=== PATIENT | female | born 1985 | race Caucasian/White ===

== ENCOUNTER 2022-04-08 15:08 | Observation (INO) ==
[2022-04-08] MEDS ORDERED: ZOFRAN INJ 4 MG VIAL IVP ONE (15:31)
--- NOTE | 2022-04-08 15:31 | DR.GENAD ---
HPI Time Seen Time Seen by Provider: 04/08/22 15:31 PCP Primary Care Physician: maye HPI Comment HPI Comment: PATIENT IS 36YR OLD FEMALE IN ER WITH RLQ ABDOMINAL PAIN THAT STARTED YESTERDAY AND IS WORSE TODAY. NO FEVER OR DYSURIA. HAVING NAUSEA AND V OMITING. NO DIARRHEA. SAW PCP TODAY AND WAS GIVEN TORADOL IM AT THE DOCTORS OFFICE. PATIENT MEDICATION DID NOT HELP. Complaint/Symptoms Chief Complaint Doctors Comments: RIGHT LOWER ABDOMINAL PAIN SINCE YESTERDAY. Chief Complaint:: RIGHT LOWER QUADRANT PAIN - STARTED YESTERDAY MORNING. PT SAYS THE PAIN WAS DULL YESTERDAY BUT HAS GOTTEN WORSE SINCE. PT SAYS NOTHING MAKES IT BETTER AND MOVING MAKES IT WORSE. Self Treatment fo Chief Complaint: TORADOL SHOT AT DR JACKSON'S OFFICE Nurses notes reviewed Nurses Notes Review: Yes Source History Provided: Patient Mode of Arrival Mode of Arrival: Ambulatory Timing Onset of Chief Complaint: 04/07/22 PMH PMH Past Medical History: Yes Past Medical History: Anxiety and Headaches Past Surgical History: Yes Surgical History: Cholecystectomy and Hysterectomy Family History History of Family Medical Conditions: Yes Family Medical History: Diabetes Mellitus and [place] Social History Alcohol Use: None Do you use any recreational Drugs:: No Lives With: Spouse and Family Lives Where: Home Infectious screening Have you traveled outside the country in the last 6 months?: No Isolation: Standard ROS Review of Systems Constitutional: See HPI, Weakness and Fatigue; negative Fever Eyes: No Symptoms Reported and See HPI; negative Blurred Vision ENTM: No Symptoms Reported and See HPI; negative Nose Discharge or Nose Congestion Respiratoy: No Symptoms Reported and See HPI; negative Moist Cough, Short of Breath or Wheezing Cardiovascular: No Symptoms Reported and See HPI; negative Chest Pain Gastrointestinal/Abdominal: See HPI, Abdominal Pain, Nausea and Vomiting; negative Diarrhea Genitourinary: No Symptoms Reported and See HPI; negative Dysuria, Frequency or Hematuria Neurological: No Symptoms Reported, See HPI and Weakness; negative Headache or Dizziness Musculoskeletal: No Symptoms Reported and See HPI; negative Muscle Pain Integumentary: No Symptoms Reported and See HPI; negative Rash or Juandice Hematologic/Lymphatic: No Symptoms Reported and See HPI Endocrine: No Symptoms Reported and See HPI; negative Increased Thirst or Increased Urine Psychiatric: No Symptoms Reported and See HPI All Other Systems: Reviewed and Negative PE Vital Signs Vitals: Temperature 97.8 F Pulse Rate 65 Respiratory Rate 14 Blood Pressure [Left Arm] 137/86 Blood Pressure 121/64 O2 Sat by Pulse Oximetry 100 General Limitations: No Limitations General Appearance: Alert and In No Apparent Distress Head Head Exam: Normal Inspection and Atraumatic Eyes Eye exam: Normal Appearance; negative Scleral Icterus or Conjunctival Injection ENT ENT Exam: Normal Exam, Normal Oropharynx, Normal External Ear Exam and TM's Normal Bilaterally External Ear Exam: Normal External Inspection; negative Mastoid Tenderness TM/Canal Exam: Bilateral: Normal Throat Exam: Normal Inspection; negative Tonsillar Erythema, Tonsillomegaly or Tonsillar Exudate Neck Neck Exam: Normal Inspection and Trachea Midline; negative Tenderness Chest Chest Inspection: Normal Inspection and Symmetric Chest Wall Rise; negative Tenderness Respiratory Respiratory Exam: Normal Lung Sounds Bilat; negative Accessory Muscle Use, Chest Wall Tenderness or Respiratory Distress Respiratory Exam: Bilateral: Clear to Auscultation Cardiovascular Cardiovascular Exam: Regular Rate, Normal Rhythm and Normal Heart Sounds; negative Systolic Murmur or Diastolic Murmur Abdominal Exam Abdominal Exam: Normal Bowel Sounds, Soft and Tenderness Abdominal Tenderness: RLQ, Suprapubic and Moderate Extremities Extremities Exam: Normal Inspection and Normal Capillary Refill Back Back Exam: Normal Inspection; negative (R) CVA Tenderness or (L) CVA Tenderness Neurologic Neurological Exam: Alert and Oriented X3; negative Motor Sensory Deficit Psychiatric Psychiatric Exam: Normal Affect and Normal Mood Skin Skin Exam: Dry; negative Rash MDM Differential Diagnosis Differential Diagnosis: APPENDICITIS, KIDNEY STONE, UTI, DIVERTICULITIS. COURSE Treatment Treatment: SEE ORDERS DONE WHILE PATIENT IN ER. Education/Counseling Education/Counseling: Patient Educated On: Diagnosis ROR Labs Reviewed Laboratory Results Reviewed?: Yes Result Diagrams: 04/08/22 15:42 04/08/22 16:17 Laboratory: WBC 9.1 X10^3/uL (3.6-10.0) 04/08/22 15:42 RBC 5.22 X10^6/uL (3.5-5.4) 04/08/22 15:42 Hgb 15.7 g/dL (12.0-16.0) 04/08/22 15:42 Hct 45.0 % (36.0-47.0) 04/08/22 15:42 MCV 86.4 fL (80.0-100.0) 04/08/22 15:42 MCH 30.0 pg (27.0-34.0) 04/08/22 15:42 MCHC 34.8 g/dL (33.0-35.0) 04/08/22 15:42 RDW 14.0 % (11.6-16.5) 04/08/22 15:42 Plt Count 268 X10^3/uL (150.0-450.0) 04/08/22 15:42 MPV 8.0 fL (7.4-11.0) 04/08/22 15:42 Neut % (Auto) 62.8 % (42.0-75.0) 04/08/22 15:42 Lymph % (Auto) 30.6 % (21.0-51.0) 04/08/22 15:42 Karnes % (Auto) 4.3 % (0.0-13.0) 04/08/22 15:42 Eos % (Auto) 1.1 % (0.9-2.9) 04/08/22 15:42 Baso % (Auto) 1.2 % (0.2-1.0) H 04/08/22 15:42 Neut # (Auto) 5.7 x10^3/uL (2.2-4.8) H 04/08/22 15:42 Lymph # (Auto) 2.8 X10^3/uL (1.3-2.9) 04/08/22 15:42 [place] # (Auto) 0.4 x10^3/uL (0.3-0.8) 04/08/22 15:42 Eos # (Auto) 0.1 x10^3/uL (0.0-0.2) 04/08/22 15:42 Baso # (Auto) 0.1 X10^3/uL (0.0-0.1) 04/08/22 15:42 Absolute Nucleated RBC 0.0 /100WBC 04/08/22 15:42 Sample Site Rrad 04/08/22 16:29 ABG pH 7.340 (7.35-7.45) L 04/08/22 16:29 ABG pCO2 52.0 mmHg (35.0-45.0) H* 04/08/22 16:29 ABG pO2 311.0 mmHg (80.0-100.0) H 04/08/22 16:29 ABG HCO3 28.1 mmol/L (22-26) H 04/08/22 16:29 ABG O2 Saturation 100.0 % (90-100) 04/08/22 16:29 ABG Base Excess 1.5 mmol/L (-2.0-2.0) 04/08/22 16:29 Abran Test Pos 04/08/22 16:29 A-a Gradient 337.0 mmHg 04/08/22 16:29 FiO2 100.0 04/08/22 16:29 Blood Gas Comments Pt jagjit well elj cdn 04/08/22 16:29 Sodium 140 mmol/L (136-145) 04/08/22 16:17 Corrected Sodium TNP 04/08/22 16:17 Potassium 3.3 mmol/L (3.5-5.1) L 04/08/22 16:17 Chloride 105 mmol/L (98-107) 04/08/22 16:17 Carbon Dioxide 32.1 mmol/L (21-32) H 04/08/22 16:17 BUN 9 mg/dL (7-18) 04/08/22 16:17 Creatinine 1.06 mg/dL (0.55-1.02) H 04/08/22 16:17 Est GFR (MDRD) Af Amer > 60 (>60) 04/08/22 16:17 Est GFR (MDRD) Non-Af > 60 (>60) 04/08/22 16:17 Glucose 93 mg/dL (65-99) 04/08/22 16:17 POC Glucose (mg/dL) 80 mg/dL (65-99) 04/08/22 16:34 Calcium 8.6 mg/dL (8.5-10.1) 04/08/22 16:17 Corrected Calcium TNP 04/08/22 16:17 Total Bilirubin 0.40 mg/dL (0.2-1.0) 04/08/22 16:17 AST 17 Units/L (15-37) 04/08/22 16:17 ALT 18 Units/L (12-78) 04/08/22 16:17 Alkaline Phosphatase 76 Units/L (46-116) 04/08/22 16:17 Total Protein 6.8 g/dL (6.4-8.2) 04/08/22 16:17 Albumin 3.8 g/dL (3.4-5.0) 04/08/22 16:17 Globulin 3.0 g/dL (2.5-4.5) 04/08/22 16:17 Albumin/Globulin Ratio 1.3 Ratio (1.1-2.1) 04/08/22 16:17 Amylase 73 Units/L (25-115) 04/08/22 16:17 Lipase 127 Units/L (73-393) 04/08/22 16:17 Specimen Type Clean catch urine 04/08/22 16:33 Urine Color Straw (YELLOW) 04/08/22 16:33 Urine Appearance Clear (CLEAR) 04/08/22 16:33 Urine pH 6.0 (5.0 - 8.0) 04/08/22 16:33 Ur Specific [place] 1.010 (1.000-1.030) 04/08/22 16:33 Urine Protein Negative (NEGATIVE) 04/08/22 16:33 Urine Glucose (UA) Negative (NEGATIVE) 04/08/22 16:33 Urine Ketones Negative (NEGATIVE) 04/08/22 16:33 Urine Blood Negative (NEGATIVE) 04/08/22 16:33 Urine Nitrite Negative (NEGATIVE) 04/08/22 16:33 Urine Bilirubin Negative (NEGATIVE) 04/08/22 16:33 Urine Urobilinogen Normal (NORMAL) 04/08/22 16:33 Ur Leukocyte Esterase Negative (NEGATIVE) 04/08/22 16:33 SARS CoV-2 RNA Rapid NICOLAS Negative (NEGATIVE) 04/08/22 16:45 XRAY XRAY Interpreted by: Radiologist (REPORTS NOTED.) EKG Rate: 71 [place]: Normal Rhythm: NSR Block: None Hypertrophy: None ST: Normal Opioid Opioid Risk Tool Age (Hank box if 16-45): Yes History of Preadolescent Sexual Abuse: No Total: 1 Total Score Risk Category: Low Risk Copyright: Anish CORNEJO predicting aberrant behaviors Discharge Plan Discharge Plan Patient Disposition: HOME, SELF-CARE Condition: Stable Prescriptions: No Action nortriptyline [Pamelor] 25 MG capsule 2 cap PO HS estradiol [Estrace] 2 MG tablet 1 tab PO DAILY gabapentin 100 MG capsule 1 cap PO HS propranolol 10 MG tablet 10 mg PO BID Qty: 60 0RF gabapentin 100 MG capsule 100 mg PO BID Qty: 60 0RF lorazepam 0.5 MG tablet 0.5 mg PO HS Qty: 20 0RF Rx Instructions: Take one tablet at bedtime as needed cyclobenzaprine 10 mg tablet 10 mg PO TID PRN (Reason: muscle spasm) Qty: 12 0RF ibuprofen 800 mg tablet 800 mg PO Q6H PRN (Reason: pain/inflammation) Qty: 20 0RF hydrocodone-acetaminophen 5-325 mg tablet 1 tab PO Q4-6H MDD 6 PRN (Reason: for more severe pain) Qty: 12 0RF Health Concerns: Post Hospitalization: new medications and changes needed to prevent readmission or further decline. Pt educated and given instructions on all concerns. Plan of Treatment: Continue with present treatment and follow up plan. Pt is to keep follow up appointment as instructed and take medications as ordered. Orders to Discharge Patient Discharge Orders: Transfer (Routine); Ordered 04/08/22 Ordered By: STEPHANE CHAO Follow ups/Referrals Follow ups/Referrals: Ahsan Jackson [Primary Care Provider] - 3 days Instructions Stand Alone Forms: Precautions for COVID19, [facility], Patient Portal, Social Distancing
[2022-04-08] MEDS ORDERED: NS 1,000 ML IV 1,000 ML ONE ×2 (15:36→20:05)
[2022-04-08] MEDS: NS 1,000 ML IV 1,000 ML IV SCH ×2 (15:47→23:12)
[2022-04-08] MEDS ORDERED: PHENERGAN INJ 25 MG IM ONE ×2 (15:49→15:56)
[2022-04-08 15:52] LABS: BILIRUBIN,URINE NEGATIVE (NEGATIVE); BLOOD/HEMOGLOBIN,URINE NEGATIVE (NEGATIVE); GLUCOSE, URINE NEGATIVE (NEGATIVE); KETONES,URINE NEGATIVE (NEGATIVE); LEUKOCYTE ESTERASE ,URINE NEGATIVE (NEGATIVE); NITRITES,URINE NEGATIVE (NEGATIVE); PROTEIN,URINE NEGATIVE (NEGATIVE); UROBILINOGEN,URINE NORMAL (NORMAL)
[2022-04-08 15:53] LABS: EOSINOPHILS # (AUTO) 0.1 x10^3/uL (0.0-0.2); HEMOGLOBIN 15.7 g/dL (12.0-16.0); RED BLOOD COUNT 5.22 X10^6/uL (3.5-5.4); WHITE BLOOD COUNT 9.1 X10^3/uL (3.6-10.0)
[2022-04-08 15:56] LABS: BASOPHILS # (AUTO) 0.1 X10^3/uL (0.0-0.1); BASOPHILS % (AUTO) 1.2 % (0.2-1.0); EOSINOPHILS % (AUTO) 1.1 % (0.9-2.9); LYMPHOCYTES # (AUTO) 2.8 X10^3/uL (1.3-2.9); LYMPHOCYTES % (AUTO) 30.6 % (21.0-51.0); MEAN CORPUSCULAR HGB CONC 34.8 g/dL (33.0-35.0); MEAN CORPUSCULAR VOLUME 86.4 fL (80.0-100.0); MONOCYTES # (AUTO) 0.4 x10^3/uL (0.3-0.8); MONOCYTES % (AUTO) 4.3 % (0.0-13.0); NEUTROPHILS # (AUTO) 5.7 x10^3/uL (2.2-4.8); NEUTROPHILS % (AUTO) 62.8 % (42.0-75.0)
[2022-04-08 15:59] LABS: APPEARANCE,URINE SLIGHTLY HAZY (CLEAR); COLOR,URINE YELLOW (YELLOW)
[2022-04-08] MEDS ORDERED: [UNRECOGNIZED DRUG - OTHER] ONE (16:19)
--- NOTE | 2022-04-08 16:24 | CT ---
HISTORYRLQ ABD PAINSTUDYABDOMEN/PELVIS W/O CONCOMPARISONTECHNIQUEMultiple axial images of the abdomen and pelvis were obtained from the lung bases to the pubic symphysis without the administration of IV contrast. Dose reduction techniques including Automated Exposure Control (AEC) and adjustment of mA and kV were utilized.FINDINGSThe lung bases are clear without effusion. The heart size is normal. The liver is normal. Gallbladder has been removed. The pancreas, spleen, adrenal glands are normal. Kidneys are normal in size without stone or hydronephrosis. The stomach, small bowel large bowel are normal. Uterus has been removed. Urinary bladder has been collapsed. No worrisome bone marrow lesionIMPRESSIONUnremarkable CT of the abdomen and pelvis. Negative for appendicitis.Electronically signed by: Geoffrey Stroud (Apr 08, 2022 16:23:32)
[2022-04-08 16:35] LABS: ABG BASE EXCESS 1.5 mmol/L (-2.0-2.0); ABG HCO3 28.1 mmol/L (22-26)
[2022-04-08] MEDS ORDERED: D50W ABBOJECT SYR ONE (16:35)
[2022-04-08 16:36] LABS: ALANINE AMINOTRANSFERASE 18 Units/L (12-78); ALBUMIN 3.8 g/dL (3.4-5.0); ALKALINE PHOSPHATASE 76 Units/L (46-116); AMYLASE 73 Units/L (25-115); ASPARTATE AMINO TRANSFERASE 17 Units/L (15-37); BLOOD UREA NITROGEN 9 mg/dL (7-18); CALCIUM 8.6 mg/dL (8.5-10.1); CARBON DIOXIDE 32.1 mmol/L (21-32); CHLORIDE 105 mmol/L (98-107); CREATININE 1.06 mg/dL (0.55-1.02); LIPASE 127 Units/L (73-393); SODIUM 140 mmol/L (136-145); TOTAL PROTEIN 6.8 g/dL (6.4-8.2); eGFR NON BLACK RACES > 60 (>60)
[2022-04-08 16:36] LABS: ABG ALLEN TEST POS
[2022-04-08] MEDS ORDERED: D50W ABBOJECT SYR IV ONE (16:36)
[2022-04-08] MEDS ORDERED: [UNRECOGNIZED DRUG - OTHER] IN ONE (16:37)
[2022-04-08 16:47] LABS: BILIRUBIN,URINE NEGATIVE (NEGATIVE); BLOOD/HEMOGLOBIN,URINE NEGATIVE (NEGATIVE); GLUCOSE, URINE NEGATIVE (NEGATIVE); KETONES,URINE NEGATIVE (NEGATIVE); LEUKOCYTE ESTERASE ,URINE NEGATIVE (NEGATIVE); NITRITES,URINE NEGATIVE (NEGATIVE); PROTEIN,URINE NEGATIVE (NEGATIVE); UROBILINOGEN,URINE NORMAL (NORMAL)
[2022-04-08 16:49] LABS: APPEARANCE,URINE CLEAR (CLEAR); COLOR,URINE STRAW (YELLOW)
[2022-04-08] MEDS ORDERED: COGENTIN 2 MG ONE (17:12)
[2022-04-08] MEDS ORDERED: COGENTIN 2 MG IVP ONE (17:13)
--- NOTE | 2022-04-08 17:32 | CT ---
HISTORYUnresponsiveSTUDYCT brain without contrastCOMPARISONFebruary 2021TECHNIQUEMultiple axial images of the brain were obtained from the skull base to the vertex [without] administration of IV contrast.Dose reduction techniques including Automated Exposure Control (AEC) and adjustment of mA and kV were utlized.FINDINGS[No acute intraparenchymal hemorrhage or mass can be identified.] [No extra-axial fluid collections are seen.] [No alteration in the attenuation of the brain parenchyma can be identified to suggest acute or subacute ischemic change.] [The ventricular system is symmetric and nondilated.] [Stable changes from posterior suboccipital decompression are notedIMPRESSION[No acute intracranial process can be identified.]Electronically signed by: MEREDITH JIMENEZ (Apr 08, 2022 17:31:15)
--- NOTE | 2022-04-08 17:34 | CT ---
HISTORYunresponsive, acute facial and neck swellingSTUDYCERVICAL SPINE W/O CONCOMPARISONNoneTECHNIQUEMultiple axial images of the cervical spine were obtained from the skull base to the thoracic inlet without administration of IV contrast. Sagittal and coronal reformats were performed and reviewed. Dose reduction techniques including Automated Exposure Control (AEC) and adjustment of mA and kV were utilized.FINDINGSAlignment of the cervical spine reversal of the normal lordosis with mild scoliosis convex to the left which is probably positional. The posterior elements align normally.. No evidence for acute cortical disruption or subluxation can be seen. The central canal remains free of compromise from bony fragments or significant soft tissue encroachment. The posterior elements appear unremarkable. The prevertebral soft tissues are normal in their appearance. In addition, the surrounding paraspinous soft tissues are unremarkable.IMPRESSIONNo evidence for traumatic injury of the cervical spine.Electronically signed by: MEREDITH JIMENEZ (Apr 08, 2022 17:33:36)
--- NOTE | 2022-04-08 17:36 | CT ---
HISTORYunresponsive, acute facial swellingSTUDYFACIAL W/O CONCOMPARISONTECHNIQUEMultiple axial images of the facial structures were obtained from the mandible to superior portions of the orbits. Dose reduction techniques including Automated Exposure Control (AEC) and adjustment of mA and kV were utilized.FINDINGSThe visualized paranasal sinuses appear unremarkable without significant mucosal thickening or air-fluid levels. The mandible as well as the surrounding bony structures appear unremarkable. The visualized portions of the orbits as well as the globe within the right and left orbit are unremarkable in their CT appearance.IMPRESSIONNegative examElectronically signed by: Geoffrey Stroud (Apr 08, 2022 17:34:56)
[2022-04-08] MEDS ORDERED: NS + KCL 20 MEQ/L 1,000 ML IV ONE (17:59)
[2022-04-08] MEDS ORDERED: NS + KCL 20 MEQ/L 1,000 ML IV SCH (18:06)
[2022-04-08] MEDS ORDERED: NS 1,000 ML IV 1,000 ML IV ONE (20:07)
[2022-04-08] MEDS ORDERED: NS 1,000 ML IV 1,000 ML IV SCH (22:00)
[2022-04-08 23:04] VITALS: BMI 26.2
[2022-04-09 00:05] LABS: CREATINE KINASE 42 Units/L (26-192)
[2022-04-09 06:15] LABS: ALANINE AMINOTRANSFERASE 15 Units/L (12-78); ALKALINE PHOSPHATASE 60 Units/L (46-116); ASPARTATE AMINO TRANSFERASE 15 Units/L (15-37); BLOOD UREA NITROGEN 6 mg/dL (7-18); CARBON DIOXIDE 26.4 mmol/L (21-32); CHLORIDE 111 mmol/L (98-107); COR CA(FOR HYPOALB) 8.8 mg/dL (8.5-10.1); CREATINE KINASE 35 Units/L (26-192); CREATININE 0.76 mg/dL (0.55-1.02); SODIUM 143 mmol/L (136-145); TOTAL PROTEIN 5.5 g/dL (6.4-8.2); eGFR NON BLACK RACES > 60 (>60)
[2022-04-09 06:26] LABS: BASOPHILS % (AUTO) 0.6 % (0.2-1.0); EOSINOPHILS # (AUTO) 0.1 x10^3/uL (0.0-0.2); EOSINOPHILS % (AUTO) 0.8 % (0.9-2.9); HEMATOCRIT 37.7 % (36.0-47.0); LYMPHOCYTES # (AUTO) 2.6 X10^3/uL (1.3-2.9); LYMPHOCYTES % (AUTO) 31.1 % (21.0-51.0); MEAN CORPUSCULAR HEMOGLOBIN 29.9 pg (27.0-34.0); MEAN CORPUSCULAR HGB CONC 34.6 g/dL (33.0-35.0); MEAN CORPUSCULAR VOLUME 86.4 fL (80.0-100.0); MEAN PLATELET VOLUME 7.8 fL (7.4-11.0); MONOCYTES # (AUTO) 0.4 x10^3/uL (0.3-0.8); MONOCYTES % (AUTO) 5.2 % (0.0-13.0); NEUTROPHILS # (AUTO) 5.1 x10^3/uL (2.2-4.8); NEUTROPHILS % (AUTO) 62.3 % (42.0-75.0); RED BLOOD COUNT 4.36 X10^6/uL (3.5-5.4); RED CELL DISTRIBUTION WIDTH 13.9 % (11.6-16.5); WHITE BLOOD COUNT 8.2 X10^3/uL (3.6-10.0)
[2022-04-09] MEDS: NS 1,000 ML IV 1,000 ML IV SCH ×2 (07:00→16:46)
[2022-04-09 08:25] VITALS: BP 103/65
[2022-04-09] MEDS ORDERED: FIORICET TAB PO PRN (11:32)
[2022-04-09] MEDS: CYMBALTA PO SCH ×2 (12:40→16:46)
--- NOTE | 2022-04-09 16:29 | CT ---
HISTORYABD PAINSTUDYABDOMEN/PELVIS WITH CONCOMPARISONNon contrasted CT abdomen and pelvis 04/08/2022TECHNIQUEM[address]iple [address] axial images of the abdomen and pelvis were obtained with IV contrast. Coronal and sagittal images were reconstructed. Dose reduction techniques included Automated Exposure Control (AEC) and adjustment of mA and kV.FINDINGSThe lung bases are clear. Heart size is normal. Bilateral breast implants are noted.Liver, spleen, adrenal glands, and pancreas are unremarkable.Surgical clips are present in the gallbladder fossa from a cholecystectomy.Renal enhancement is symmetric with no solid mass. There is no hydronephrosis or significant perirenal edema. The bladder is normally distended. It has no wall thickening or perivesical edema. Tiny amount of air in the urinary bladder is probably iatrogenic.The bowel is not dilated. There is no wall thickening in the bowel or edema around the bowel. The appendix is normal in size with no inflammation around it. No evidence of appendicitis.No significant bone abnormality.IMPRESSION1. No acute finding or significant abnormalityElectronically signed by: Taj Vickers (Apr 09, 2022 16:28:07)
[2022-04-09] MEDS ORDERED: ESZOPICLONE 3 MG PO SCH (21:00)
--- NOTE | 2022-04-10 10:35 | DR.CARTERS ---
Short Stay Summary - Admission Date Date of Admission: 04/08/22 - Discharge Date Discharge Date: 04/09/22 - Admission Diagnoses (1) Oculogyric crisis Status: Acute (2) Dystonic drug reaction Status: Acute (3) Abdominal pain Status: Acute - Hospital Course Hospital Course: IS A 36 YEAR OLD PATIENT OF OURS. SHE PRESENTED TO THE ER WITH COMPLAINTS OF RLQ ABDOMINAL PAIN X 1 DAY. SHE DENIED FEVER, DYSURIA, OR DIARRHEA. SHE DID ADMIT TO NAUSEA AND VOMTITING. SHE WAS GIVEN A TORADOL IM INJECTION IN THE OFFICE ON 04/08/22, BUT DENIED IMPROVEMENT SINCE RECEIVING INJECTION. SHE DESCRIBES PAIN DULL, INTERMITTENT, AND RATED IT A 6/10 ON ARRIVAL. SHE HAS A PMH OF ANXIETY, CHRONIC HEADACHES, CHIARI MALFORMATION, CHOLECYSTECTOMY, HYSTERECTOMY, AND DECOMPRESSION OF CHIARI MALFORMATION. UPON ARRIVAL TO THE ER, PATIENT WAS ALERT AND ORIENTED, WITH NO NEUROLOGICAL DEFICITS NOTED. ON ARRIVAL, VITALS WERE: 97.3-76-18-100%RA-134/93. LABS WERE OBTAINED. WBC 9.1, HGB 15.7, HCT 45.0, SODIUM 140, POTASSIUM 3.3, CHLORIDE 105, CARBON DIOXIDE 32.1, BUN 9, CREATININE 1.06, GLUCOSE 93, CALCIUM 8.6, AST 17, ALT 18, ALK PHOS 76, TOTAL PROTEIN 6.8, ALBUMIN 3.8, AMYLASE 73, LIPASE 127. URINALYSIS WAS OBTAINED AND WAS NEGATIVE. COVID-19 NEGATIVE. AT 15:57, SHE WAS GIVEN PHENERGAN 25MG IM X 1 DOSE FOR NAUSEA. AT APPROXIMATELY 16:30, PATIENT WAS NOTED TO HAVE SHALLOW RESPIRATIONS AND WAS NOT RESPONSIVE TO VERBAL STIMULI OR STERNAL RUB. HE EYES WERE OPEN IN AN UPWARD POSITION AND HER JAWS WERE NOTED TO BE CLINCHED. AT 16:35, PATIENT VOMITED APPROXIMATELY 100 ML. PUPILS WERE NOTED TO BE SLUGGISH. SHE WAS ALSO APPARENTLY NOTED TO HAVE SWELLING TO CHEEKS, NECK, AND AROUND EYES. SWELLING WAS APPARENTLY NOT PRESENT ON ARRIVAL. AN AROMATIC AMMONIA INHALANT WAS USED AND SHE WAS GIVEN AN AMP OF D50, BUT IT DID NOT APPEAR TO HELP. AT 1655, PATIENT WAS ABLE TO FOLLOW STAFF WITH HER EYES, BUT DID NOT MOVE EXTREMITIES TO COMMAND. HER OXYGEN SATURATIONS REMAINED 100% DURING EVENT AND BLOOD PRESSURE WAS STABLE. SHE WAS SENT FOR A BRAIN CT. IT REVEALED: No acute intraparenchymal hemorrhage or mass can be identified. No extra-axial fluid collections are seen. No alteration in the attenuation of the brain parenchyma can be identified to suggest acute or subacute ischemic change. The ventricular system is symmetric and nondilated. Stable changes from posterior suboccipital decompression are noted. FACIAL BONES AND CERVICAL SPINE CT WERE NEGATIVE FOR ACUTE ABNORMALITY. EKG REVEALED: SINUS RHYTHM WITH HR 71. AT APPROXIMATELY 1750, SHE WAS GIVEN COGENTIN 2MG IV X 1 AND A NORMAL SALINE WITH 20MEQ KCL 1 LITER BOLUS. CASTREJON CATHETER WAS INSERTED. SHE WAS GIVEN AN ADDITIONAL BOLUS AROUND 1999. SHE WAS ADMITTED TO THE HOSPITAL FOR FURTHER EVALUATION AND TREATMENT OF OCULOGYRIC CRISIS, DYSTONIC REACTION TO PHENERGAN, AND ABDOMINAL PAIN. SHE WAS STARTED ON NORMAL SALINE AT 125 ML/HR. OTHERWISE, WE PLANNED TO FOLLOW-UP WITH AM LABS AND CONTINUE TO MONITOR. ON MORNING ROUNDS, PATIENT IS ALERT AND ORIENTED, LYING IN BED ON MORNING ROUNDS. SHE COMPLAINS OF HEADACHE, WEAKNESS, AND CONTINUES TO HAVE RLQ ABDOMINAL PAIN. SPOUSE REPORTS THAT SHE HAS BEEN ORIENTED THROUGHOUT THE NIGHT AND HAS NOT HAD ANYMORE DYSTONIC EPISODES. WHEN ASKED IF SHE RECALLS EVENTS THAT TOOK PLACE IN THE ER, SHE REPORTS BEING ABLE TO HEAR VOICES, BUT IS UNSURE OF WHAT WAS SAID OR WHAT WAS HAPPENING. ON EXAMINATION, SWELLING TO FACE AND NECK HAS IMPROVED. SHE IS SLIGHTLY BRADYCARDIC WITH HR IN THE 50s. REGULAR RHYTHM NOTED. BILATERAL LUNGS ARE CLEAR TO AUSCULTATION. ABDOMEN IS ROUND, SOFT, AND NOTED WITH RLQ TENDERNESS TO PALPATION. NORMAL BOWEL SOUNDS ARE NOTED IN ALL QUADRANTS. NO UPPER OR LOWER EXTREMITY EDEMA NOTED. HER CASTREJON CATHETER WAS REMOVED THROUGHOUT THE NIGHT, ONCE PATIENT BECAME ALERT. HER VITALS THIS MORNING ARE: 97.8-55-20-98%RA-103/65. LABS WERE OBTAINED. WBC 8.2, HGB 13.0, HCT 37.7, SODIUM 143, POTASSIUM 3.9, CHLORIDE 111, CARBON DIOXIDE 26.4, BUN 6, CREATININE 0.76, GLUCOSE 89, CALCIUM 8.0, TOTAL BILI 0.30, AST 15, ALT 15, ALK PHOS 60, CREATINE KINASE 35, TROPONIN 4.4, TOTAL PROTEIN 5.5, ALBUMIN 3.0. MOST RECENT EKG REVEALED: SINUS BRADYCARDIA WITH HR 49. WE REPEATED AN ABDOMEN/PELVIS CT WITH CONTRAST. IT WAS NEGATIVE FOR ACUTE ABNORMALITY. SHE WAS GIVEN FIORICET 2 TABS FOR HEADACHE. WE PLANNED FOR DISCHARGE. INSTRUCTIONS FOR MEDICATIONS AND FOLLOW- UP WERE DISCUSSED WITH PATIENT AND SPOUSE. THEY VERBALIZED UNDERSTANDING OF ALL ORDERS. SHE WAS INSTRUCTED TO CONTINUE HER CYMBALTA AND ESZOPICOLONE WITH NO CHANGES TO DOSAGES. WE WILL PRESCRIBE FIORICET 2 TABS PO Q8H PRN FOR HEADACHES. SHE WAS OTHERWISE ADVISED TO FOLLOW-UP IN THE OFFICE FOR REASSESSMENT. PATIENT DISCHARGED HOME WITH SPOUSE IN STABLE CONDITION. TIME SPENT ON CLINICAL ASSESSMENT, REVIWING LABS AND IMAGING, DECISION MAKING, DISCHARGE INSTRUCTIONS, PREPARING DISCHARGE PAPERS, AND DOCUMENTATION GREATER THAN 75 MINUTES. - Discharge Medications Discharge Medications: Home Medication List [id number]-gujhlnkubhpam-ynzdiapq 50 mg-325 mg-40 mg tablet 2 tab PO Q8H PRN #30 tabs 04/09/22 [Rx] duloxetine 30 mg capsule,delayed release 30 mg PO HS 04/09/22 [History] eszopiclone 3 mg tablet 3 mg PO QHS 04/09/22 [History] Prescriptions: [id number] Ahsan Phelps - Discharge Plan Disposition: HOME, SELF-CARE Condition: Stable Prescriptions: [id number]-goyrfksgktfsh-ejnb 2 tab PO Q8H PRN #30 tabs PRN Reason: - Follow up/Referrals Follow up/Referrals: Ahsan Phelps [Primary Care Provider] - 04/16/22 10:20 am - Instructions Instructions: Generalized Anxiety Disorder, Adult, Nausea and Vomiting, Adult, Nrlf-[id number], Drug Allergy, Qaij-rx-Gsve, Abdominal Pain, Adult, Xexy-sb-Decu, General Headache Without Cause, Gxts-vw-Dlfn, Dystonic Reaction Additional Instructions: diet as tolerated. activity as tolerated. Forms: Precautions for COVID19, [facility], Patient Portal, Social Distancing
== END 2022-04-09 18:08 | disposition home or self-care (01) ==
LOC: MED/SURG 15:08 → ER 15:08 → MED/SURG 22:01
PROVIDERS: ADMIT Internal Medicine; ATTEND Internal Medicine
DX: H51.8 Other specified disorders of binocular movement; X58.XXXA Exposure to other specified factors, initial encounter; Y92.9 Unspecified place or not applicable; R10.31 Right lower quadrant pain; R11.2 Nausea with vomiting, unspecified; R51.9 Headache, unspecified; R94.31 Abnormal electrocardiogram [ECG] [EKG]; T42.6X5A Adverse effect of other antiepileptic and sedative-hypnotic drugs, initial encounter